=== PATIENT | female | born 1970 | race Caucasian/White ===

== ENCOUNTER → 2018-06-15 10:20 | Outpatient (REF) | payer BC, SELFPAY ==
[2018-06-15 12:45] LABS: ALT 13 U/L (12-78); AST 19 U/L (15-37); Albumin 4.1 g/dL (3.4-5.0); Alkaline Phosphatase 88 U/L (46-116); Anion Gap 8.5 mmol/L (3-11); BUN 14 mg/dL (7-18); Bilirubin, Total 0.7 mg/dL (0.2-1.0); CO2 28.5 mmol/L (21.0-32.0); CREATININE 0.92 mg/dL (0.55-1.02); Calcium 8.6 mg/dL (8.5-10.1); Chloride 104 mmol/L (98-107); Cholesterol 180 mg/dL (50-200); Glucose 96 mg/dL (70-100); HDL Cholesterol 56 mg/dL (40-60); LDL CHOLESTEROL 115 mg/dL (<100); Potassium 4.3 mmol/L (3.5-5.1); Sodium 141 mmol/L (136-145); Total Protein 7.4 g/dL (6.4-8.2); Triglyceride 108 mg/dL (30-150)
[2018-06-15 13:15] LABS: Vitamin D 25 Total 42.6 ng/ml (30-100)
== END ==
LOC: NCHCN 10:20
PROVIDERS: PCP Nurse Practitioner; Visit Provider Nurse Practitioner
DX: Z00.00 Encounter for general adult medical examination without abnormal findings (principal); E55.9 Vitamin D deficiency, unspecified
CPT/HCPCS: 80053; 80061; 82306; 83721

== ENCOUNTER 2018-09-29 11:07 | Outpatient (CLI) | payer BC, SELFPAY ==
--- NOTE | 2018-09-29 07:51 | DI.RAD_ITS ---
SYMPTOM/DIAGNOSIS: LT HEEL PAIN, ? STRESS FX, ? HEEL SPUR LEFT FOOT: There is no evidence of fracture. A plantar calcaneal spur is seen. There is no plantar fascial calcification or evidence of bony erosions. There are no significant degenerative changes. IMPRESSION: Plantar calcaneal spur.
== END 2018-09-29 11:27 ==
PROVIDERS: PCP Nurse Practitioner; Visit Provider Nurse Practitioner
DX: M79.672 Pain in left foot (principal); M77.32 Calcaneal spur, left foot
CPT/HCPCS: 73630

== ENCOUNTER 2020-02-26 02:06 | Outpatient (CLI) | payer BC, SELFPAY ==
--- NOTE | 2020-02-26 15:00 | NS.NUTBLAN_ITS ---
Lashonda comes to outpatient office for Medical Nutrition Therapy for weight gain/morbid obesity per MD referral. She declines being weighed however states that she wants to lose about 50 lbs. She is 5 ft with BMI>40. PMH: unremarable. Meds include feldene, vibryd, neither associated with weight gain. She reports dieting on and off over the years and is frustrated that she cannot keep the weight off despite eating healthy foods and being active. Labs: unremarkable as well. Family history includes type 2 diabetes in both parents. Estimated needs for weight loss: 9793-8107 kca, 60-80 g protein, 40-50 g fat. Diet recall indicates intake of 2791-2602 kcal, 30-40 g protein, 40-50 g fat. No formal exercise at this time. Educated Lashonda to follow lower carb diet with emphasis on lean protein, vegetables and unsaturated fats. Encouraged her to keep food record and to follow up weekly with me. Discussed that her weight gain may be realated to her genetics for type 2 diabetes and that a lower carb, higher protein diet may help her lose weight. Weight was taken today but will not be revealed however, at follow up visits will indicate weight change. Discussed importance of exercise on daily basis. Plan: 1. 1500 kcal, 90-100 g carb, 60-80 g protein, 2. walk 14 miles weekly, 3. log diet and exercise on [employer] mohini 2. follow up to be scheduled in 4 weeks. 30 min spent face to face, 2 units billed to insurance
== END 2020-02-26 02:26 ==
PROVIDERS: PCP Nurse Practitioner; Visit Provider Nurse Practitioner
DX: E66.01 Morbid (severe) obesity due to excess calories (principal); Z71.3 Dietary counseling and surveillance
CPT/HCPCS: 97802

== ENCOUNTER 2020-05-27 04:53 | Outpatient (CLI) | payer BC, SELFPAY ==
--- NOTE | 2020-05-27 15:00 | NS.NUTBLAN_ITS ---
Lashonda returns for Medical Nutrition Therapy for obesity. Wt: blind weights completed, she has lost 22 lbs. Goal Weight: 160-170 lbs. She reports following lower carb, higher protein diet with emphasis on lean protein, non- starchy vegetables and complex carbs. For exercise she is using the treadmill or helping remodel the house. Overall, in last 3 months, has lost about 2 lbs per week- she reports feeling great, has no cravings and able to meet her nutrient need by using food diary log called [employer]. Encouraged Lashonda to continue to log meals on mohini daily to monitor nutrient intake and meet nutrient needs for weight loss. Once house remodeled, walk 14 miles per week outside or on treadmill for continued weight loss. Follow up planned in next 3 months. Lashonda to make appt. when available and needs check in.
== END 2020-05-27 05:13 ==
PROVIDERS: PCP Nurse Practitioner; Visit Provider Dietitian, Registered
DX: E66.01 Morbid (severe) obesity due to excess calories (principal); Z71.3 Dietary counseling and surveillance
CPT/HCPCS: 97803

== ENCOUNTER 2020-08-01 14:17 | Outpatient (REF) | payer SELFPAY ==
[2020-08-02 17:55] LABS: COVID-19 RT-PCR Result NEGATIVE (Negative)
== END 2020-08-01 14:37 ==
LOC: NCHCN 14:17
PROVIDERS: PCP Nurse Practitioner; Visit Provider Nurse Practitioner Family
DX: Z11.59 Encounter for screening for other viral diseases (principal)
CPT/HCPCS: U0003

== ENCOUNTER 2020-08-28 12:32 | Outpatient (REF) | payer BC, SELFPAY ==
[2020-08-28 18:46] LABS: ALT 16 U/L (14-59); AST 14 U/L (15-37); Alkaline Phosphatase 115 U/L (46-116); Anion Gap 6.7 mmol/L (3-11); BUN 18 mg/dL (7-18); Bilirubin, Total 0.4 mg/dL (0.2-1.0); CO2 30.3 mmol/L (21.0-32.0); CREATININE 0.84 mg/dL (0.55-1.02); Calcium 9.3 mg/dL (8.5-10.1); Chloride 103 mmol/L (98-107); Glucose 102 mg/dL (74-106); Potassium 4.4 mmol/L (3.5-5.1); Sodium 140 mmol/L (136-145); Total Protein 7.4 g/dL (6.4-8.2)
[2020-08-28 19:08] LABS: Calculated LDL 108 mg/dL (<100); Cholesterol 199 mg/dL (<200); HDL Cholesterol 52 mg/dL (40-60); Triglyceride 198 mg/dL (<150)
== END 2020-08-28 12:52 ==
LOC: NCHCN 12:32
PROVIDERS: PCP Nurse Practitioner; Visit Provider Nurse Practitioner
DX: Z13.89 Encounter for screening for other disorder (principal); R63.5 Abnormal weight gain; F32.9 Major depressive disorder, single episode, unspecified
CPT/HCPCS: 80053; 80061

== ENCOUNTER 2020-09-22 10:10 | Outpatient (CLI) | payer BC, SELFPAY ==
--- NOTE | 2020-09-22 08:15 | DI.RAD_ITS ---
EXAM: XR KNEE LT 4V AP,LAT,ANDRES,PAT CLINICAL HISTORY: acute left knee pain. TECHNIQUE: 2D digital imaging was performed. COMPARISON: No exams were available for comparison FINDINGS: There is no evidence of fracture nor joint effusion. No degenerative changes. No osseous lesions. Bone density normal. No osteochondral defects. IMPRESSION: No significant radiographic findings in the left knee. DATA REPOSITORY: RADIATION DOSE DELIVERED:
== END 2020-09-22 10:30 ==
PROVIDERS: PCP Nurse Practitioner; Referring Provider Nurse Practitioner; Visit Provider Physician Assistant Surgical
DX: M25.562 Pain in left knee (principal)
CPT/HCPCS: 73564

== ENCOUNTER 2021-02-16 13:25 | Outpatient (CLI) | payer BC, SELFPAY ==
--- NOTE | 2021-02-16 11:15 | DI.RAD_ITS ---
Exam(s) XR HIP RT COMPLETE AP PELVIS EXAM: XR HIP RT COMPLETE AP PELVIS CLINICAL HISTORY: rt hip pain. TECHNIQUE: 2D digital imaging was performed. COMPARISON: No exams were available for comparison FINDINGS: BONES: No acute fracture is present. No bony destructive lesion is seen. JOINTS: No dislocation present. SOFT TISSUE: Normal. Note is made of an IUD in the pelvis. IMPRESSION: Unremarkable radiographs of the right hip. Unremarkable radiographs of the pelvis. DATA REPOSITORY: RADIATION DOSE DELIVERED:
== END 2021-02-16 13:26 | disposition home or self-care (01) ==
LOC: DIORS 15:04
PROVIDERS: PCP Nurse Practitioner; Referring Provider Nurse Practitioner; Visit Provider Physician Assistant Surgical
DX: M25.551 Pain in right hip (principal)
CPT/HCPCS: 73502

== ENCOUNTER 2021-02-27 03:33 | Outpatient (CLI) | payer BC, SELFPAY ==
[2021-02-27 10:16] LABS: Source Nasal/Nares
[2021-02-27 14:07] LABS: COVID-19 PCR Negative (Negative)
== END 2021-02-27 03:34 | disposition home or self-care (01) ==
LOC: LBO 03:35
PROVIDERS: PCP Nurse Practitioner; Visit Provider Surgery
DX: Z20.822 Contact with and (suspected) exposure to COVID-19 (principal); Z01.818 Encounter for other preprocedural examination
CPT/HCPCS: 87635

== ENCOUNTER 2021-03-02 06:19 | Day surgery (SDC) | payer BC, SELFPAY ==
--- NOTE | 2021-03-02 06:19 | W.COLOREPORT ---
Date of service: 03/02/21 Time of Service: 08:00 Colonoscopy Report Date of procedure: 03/02/21 Pre-op diagnosis general: Colon Cancer Screening Post-op diagnosis procedure note: same Procedure: Colonoscopy Surgeon: Kayley Wilkes Anesthesia Type: General:No Airway (ASA 3/ Ramsey Luther, REBECCA) Estimated blood loss (mL): 0 Pathology: none sent Complications: None Disposition: same day Indications: Jerrica is a pleasant 50-year-old female being seen today for a screening colonoscopy.? She did have a colonoscopy in 2002 which was negative.? She denies any melena, hematochezia, abdominal pain, or changes in bowel habits.? She does have a family history of colon cancer in her maternal grandfather but he was in his early to mid 80s when he was diagnosed.? We reviewed the colonoscopy in detail using a pamphlet.? We reviewed the prep and Covid testing. Risks, benefits and complications have been reviewed. Complications include but are not limited to bleeding, pain, perforation, missed small lesion/polyp, sore throat, aspiration and adverse reaction to the medications. Questions were entertained and answered to their satisfaction and they wished to proceed. No guarantees were given or implied.? COVID-19 testing explained to the patient. Reason for test reviewed. Quarantine per state requirements reviewed with patient. Patient understands and agrees to testing. Prep: Miralax/Dulcolax Procedure Start Time: 07:26 Procedure End Time: 07:57 Retraction Time: 13 min Findings: Normal colonoscopy Procedure Description: After informed consent was obtained the patient was taken to the procedure room and placed in a left decubitous position. Monitors were applied and a time out was done. The patients name, date of , procedure, allergies to medications and metal in their body was reviewed. The patient was then sedated. Once sedated and comfortable a rectal exam was done. External exam was normal. Internal exam revealed a normal sphincter tone and no palpable masses. The scope was then introduced and retro-flexed. No internal hemorrhoids, polyps or masses were identified on retro-flexion. The scope was then advanced to the cecum without difficulty. The ileocecal vlave and appendiceal orifice were identified. The prep was good. The scope was then slowly retracted over 13 minutes back into the rectum. There were no polyps and no diverticulosis noted. The scope was removed and the patient was woken up and taken back to Same day surgery in stable condition. The patient tolerated the procedure well and there were no immediate complications. Follow up: The patient should follow up in 10 years unless they develop changes in bowel habits or other new gastrointestinal complaints.
--- NOTE | 2021-03-02 06:20 | W.PM.DSUDISC ---
Discharge Plan Disposition Patient Disposition: HOME Condition: Good Discharge Details Reason For Visit: Colonoscopy Attending Provider: Kayley Wilkes Primary Care Provider: Lucy Hess Home Meds and New Rx's Prescriptions: Continued Viibryd 40 mg tablet 40 mg PO DAILY RF: 0 Multiple Vitamin, Womens Tablet PO RF: 0 cholecalciferol (vitamin D3) 25 mcg (1,000 unit) capsule 25 mcg PO DAILY RF: 0 omega-3 fatty acids [Fish Oil Concentrate] 1,000 mg capsule 1,000 mg PO DAILY RF: 0 acetylcysteine [NAC] 600 mg capsule 600 mg PO DAILY RF: 0 Discontinued bisacodyl [Dulcolax (bisacodyl)] 5 mg tablet,delayed release (DR/EC) 5 mg PO ONCE Qty: 4 RF: 0 polyethylene glycol 3350 17 gram/dose powder 17 g PO ONCE Qty: 238 RF: 0 Discharge Instructions Additional Instructions: Findings: Normal colon Follow up: 10 years Please call if you develop: fevers >101.5 Nausea or Vomiting Abdominal pain that is not transient Rectal bleeding that is more then a tbsp A hard abdomen and inability to pass gas DAY SURGERY UNIT POST ENDOSCOPY INSTRUCTIONS Instructions for everyone who is given Anesthesia: For your safety, please do the following for the next 24 Hours: a. Do not drive or operate dangerous equipment b. Do not drink alcohol beverages or use any recreational drugs for the first 24 hours or while taking pain medications. The medications in your body may have a reaction that can be dangerous. c. Do not make any important decisions or sign any important papers 1. Generally there are no restrictions on your activity after a day or so has gone by, but you may feel a bit fatigued for a few days. 2. After you arrive home you may have a light meal and return to a normal diet as you can tolerate it without feeling sick to your stomach. 3. After surgery, you may feel pain or discomfort. This should be only transient, but if it persists please contact your doctor. 4. If there are any questions regarding the findings of your procedure, please feel free to contact your doctor. 6. If you are unable to contact your doctor with a problem, contact the hospital at [phone]. 7. Continue all your regular medications unless directed otherwise. I understand the above instructions and have no questions. Signature of Patient or Responsible Adult Escort Date/Time Name of Responsible Adult Escort Signature of Nurse Date/Time Activity:: Activity as Tolerated Diet:: As Tolerated Discharge Orders Discharge Orders: Discharge Order (Routine); Ordered 03/02/21 Ordered By: Kayley Wilkes
[2021-03-02 06:45] VITALS: BP 126/77; PULSE 74; RESP 16; TEMP 36.3; O2SAT 96
[2021-03-02] MEDS: Lactated Ringers 1,000 ML 80 ML IV (06:50)
--- NOTE | 2021-03-02 07:04 | W.ANESPRE ---
General Info Date of Service Date Performed: 03/02/21 Height: 4 ft 11.5 in Weight: 96.5 kg Body Mass Index (BMI): 42.2 Surgical Procedure: Operation Date: 03/02/21 07:35 Proposed Procedures Side Surgeon p Colonoscopy Kayley Wilkes MD Meds Allergies and Home Medications Allergies Allergy/AdvReac Type Severity Reaction Status Date / Time citalopram [From Celexa] Allergy Unknown unknown Verified 03/02/21 06:40 miconazole [From Monistat 3] Allergy Verified 03/02/21 06:40 skin cleanser combination Allergy Verified 02/16/21 11:25 no.17 [From Monistat 3] Home Medication Medication Instructions Recorded cholecalciferol (vitamin D3) 25 25 mcg PO DAILY 09/22/20 mcg (1,000 unit) capsule myxyzkamrxlo-Rt-nmab-minerals tab PO 09/22/20 vilazodone 40 mg tablet 40 mg PO DAILY 09/22/20 acetylcysteine 600 mg capsule 600 mg PO DAILY 02/03/21 omega-3 fatty acids 1,000 mg 1,000 mg PO DAILY 02/03/21 capsule bisacodyl 5 mg tablet,delayed 5 mg PO ONCE #4 tab 02/24/21 release polyethylene glycol 3350 17 17 g PO ONCE #238 g 02/24/21 gram/dose oral powder Current Visit Medications: Current Medications Generic Name Dose Route Start Last Admin Trade Name Freq PRN Reason Stop Dose Admin Hyoscyamine Sulfate 0.125 mg 03/02/21 06:21 Hyoscyamine 0.125 Mg Sl/Oral/Chew SL DIRECTED PRN Ringer's Solution 1,000 mls @ 80 mls/hr 03/02/21 06:00 03/02/21 06:50 IV 03/29/21 23:59 80 mls/hr INFUSION WESTLEY Administration IV Miscellaneous Supplies 1 each 03/02/21 06:00 Iv Access IV 03/29/21 23:59 DIRECTED WESTLEY Ondansetron HCl 4 mg 03/02/21 06:21 Ondansetron 4 Mg/2 Ml Vial IVP Q4H PRN PRN Nausea / Vomiting Sodium Chloride 0 ml 03/02/21 06:00 Normal Saline Flush 10 Ml Syr IV 03/29/21 23:59 PRN PRN Sodium Chloride 0 ml 03/02/21 06:00 Normal Saline 10 Ml Vial IJ 03/29/21 23:59 DIRECTED PRN Sterile Water 0 ml 03/02/21 06:00 Water,Injection,Sterile 10 Ml Vial IJ 03/29/21 23:59 DIRECTED PRN PFSH Active Problems Active Problems: Problem Status Onset Code Screening for colon cancer Z12.11 Weight gain R63.5 Right hip pain M25.551 Trochanteric bursitis, right hip M70.61 Medical History Medical History Anxiety Contusion of bone Depression Left knee pain Menstrual headache Morbid obesity with BMI of 40.0-44.9, adult OCD (obsessive compulsive disorder) Trochanteric bursitis, right hip Vitamin D deficiency Surgical History Surgical History (Updated 03/02/21 @ 06:44 by Mahnaz Joshua) Arthroplasty of knee R knee scope per pt Hemorrhoidectomy (~2002) sphincterotomy, fissurotomy S/P colonoscopy (~2002) Tobacco Smoking/Tobacco Use Status: Never Alcohol Alcohol Intake: never Substance Use Substance use type: does not use Vital Signs and Lab Results Vital Signs Most Recent Vital Signs in EMR: Most Recent Vital Signs Temp Pulse Resp BP Pulse Ox 36.3 C L 74 16 126/77 96 03/02/21 06:45 03/02/21 06:45 03/02/21 06:45 03/02/21 06:45 03/02/21 06:45 Point of Care Results Point of Care Results: POC- Test(urine) Negative 03/02/21 06:45 Lab Results Blood Type / Crossmatch: No Data to Display Complete Blood Count: No Data to Display Complete Metabolic Panel: No Data to Display Liver Function Panel: No Data to Display Coagulation Panel: No Data to Display Cardiac Panel: No Data to Display Arterial Blood Gas: No Data to Display Venous Blood Gas: No Data to Display Pancreas Panel: No Data to Display Thyroid Panel: No Data to Display Infectious Disease: Coronavirus (COVID-19)(PCR) Negative (Negative) 02/27/21 08:43 02/27/21 Coronavirus 2019 Source Nasal/nares 02/27/21 08:43 02/27/21 Blood Cultures: No Data to Display Toxicology Panel: No Data to Display Panel: No Data to Display Anesthesia Assessment and Plan Anesthesia History Personal History: No History of Anesthesia Complications Family History: No Family History of Anesthesia Complications Exercise Tolerance Exercise Tolerance: Metabolic Equivalents>4 Pertinent Negatives Pertinent Negatives: No Symptoms of GERD, No Major Cardiovascular Symptoms or Complaints and No Major Pulmonary Symptoms or Complaints Cardiac & Pulmonary Exam Cardiac Exam: Normal S1/S2 Heart Sounds Pulmonary Exam: Clear Bilateral Breath Sounds Airway Exam Known Difficult Airway: No Mallampati Class: 2 Mouth Opening: Narrow (< 3cm) Thyromental Distance: Greater than 3 cm Neck Range of Motion: Full ROM Neck Circumference: Normal Teeth Condition: Normal Dentition ASA Classification ASA Score: ASA 3 Emergency Case?: No NPO Status NPO Status: NPO Clears >2 hours, Solids >8 hours Status Status: Negative HCG Anesthesia Plan Resuscitation Status: Full Code Anesthesia Technique: General Anesthesia Airway Planned: Natural Airway Monitors Used: Standard Monitors
[2021-03-02 07:07] VITALS: BMI 42.2
[2021-03-02 08:04] VITALS: BP 109/64; PULSE 61; RESP 16; TEMP 36.2; O2SAT 100
--- NOTE | 2021-03-02 08:06 | W.ANESPOSTOP ---
Postoperative Evaluation Date, Time and Location Date Performed: 03/02/21 Time Performed: 08:06 Patient Location: Day Surgery Unit Vital Signs Most Recent Imported Vital Signs: Most Recent Vital Signs Temp Pulse Resp BP Pulse Ox 36.3 C L 74 16 126/77 96 03/02/21 06:45 03/02/21 06:45 03/02/21 06:45 03/02/21 06:45 03/02/21 06:45 Pain Score Most Recent Pain Score: Most Recent Pain Score Pain Level 0 03/02/21 06:45 Assessment Mental Status: Arousable with meaningful communication Airway and Respiratory Function: Patent airway with normal (patient baseline) respiratory exam Cardiovascular Function: Hemodynamically Stable Hydration Status: Adequately Hydrated Nausea & Vomiting: No Nausea or Vomiting Pain: Pain is tolerable/mild (<5/10) Peripheral Nerve Block: Patient did not receive a nerve block
[2021-03-02 08:33] VITALS: BP 97/49; PULSE 50; RESP 16; TEMP 36.3; O2SAT 98
== END 2021-03-02 09:25 | disposition home or self-care (01) ==
PROVIDERS: PCP Nurse Practitioner; Visit Provider Surgery
PROC: 0DJD8ZZ Inspection of Lower Intestinal Tract, Via Natural or Artificial Opening Endoscopic (ICD-10-PCS; CPT 45378; principal; 2021-03-02 07:30)
DX: Z12.11 Encounter for screening for malignant neoplasm of colon (principal); Z80.0 Family history of malignant neoplasm of digestive organs
CPT/HCPCS: 45378; 81025; J2704

== ENCOUNTER 2021-12-11 08:03 | Emergency (ER) | payer BC, SELFPAY ==
[2021-12-11 08:21] VITALS: BP 143/72; PULSE 79; RESP 14; TEMP 36.2; O2SAT 97
[2021-12-11 08:23] VITALS: BP 143/72; PULSE 81; RESP 12; TEMP 36.6
--- NOTE | 2021-12-11 08:49 | ED.GENADUL_ITS ---
Discharge Plan Disposition Patient Disposition: HOME Condition: Good Discharge Details Clinical Impression: Foot fracture, right Primary Care Provider: Lucy Hess ED Provider: Helena Mcneill Home Meds and New Rx's Prescriptions: Continued Viibryd 40 mg tablet 40 mg PO DAILY 0RF Rx Instructions: must administer with a meal/food Multiple Vitamin, Womens Tablet PO 0RF cholecalciferol (vitamin D3) 25 mcg (1,000 unit) capsule 25 mcg PO DAILY 0RF omega-3 fatty acids [Fish Oil Concentrate] 1,000 mg capsule 1,000 mg PO DAILY 0RF Discharge Instructions Additional Instructions: Take ibuprofen and Tylenol as needed for pain, ibuprofen 600 mg every 8 hours with food Tylenol 500 to 650 mg every 4-6 hours as needed for additional pain control I and elevate Use patches and limit weightbearing as much as possible Please follow-up with orthopedic to schedule outpatient appointment and return earlier should you have new or worsening complaints including skin discoloration, strength or sensation change, or or worsening pain Referrals: Andrew Connolly MD [ [facility] STAFF PHYSICIAN] - Discharge Data Discharge Date/Time-TO BE ENTERED AT DEPARTURE: 12/11/21 09:[address] in orthopedic boot and crutches Instructed toe-touch weightbearing only Orthopedic referral supplied Ibuprofen and Tylenol for pain control Return precautions discussed and patient understanding, discharged home ambulatory Medical Records Medical records reviewed: Yes I reviewed the patient's medical records. HPI General Date/Time Provider Initiated Documentation: 12/11/21 08:10 . HPI Narrative: This 51-year-old female with history of right hip pain presents with report of slip and fall on ice, twisting her left foot. She has pain at the lateral aspect of her left foot, this occurred at 740 this morning. She denies any additional injuries. Denies any strength or sensation change. Able to ambulate with discomfort per patient. Denies any associated knee pain. Specifically denies any head injury. Related Data Home Medications Medication Instructions Recorded Confirmed cholecalciferol (vitamin D3) 25 25 mcg PO DAILY 09/22/20 03/02/21 mcg (1,000 unit) capsule fcoqldqzwkiq-Cr-ncss-minerals tab PO 09/22/20 02/03/21 (Multiple Vitamin, Womens) vilazodone 40 mg tablet (Viibryd) 40 mg PO DAILY 09/22/20 12/11/21 omega-3 fatty acids 1,000 mg 1,000 mg PO DAILY 02/03/21 03/02/21 capsule (Fish Oil Concentrate) Allergies Allergy/AdvReac Type Severity Reaction Status Date / Time citalopram [From Celexa] Allergy Unknown unknown Verified 03/02/21 06:40 miconazole [From Monistat 3] Allergy Verified 03/02/21 06:40 skin cleanser combination Allergy Verified 02/16/21 11:25 no.17 [From Monistat 3] General Stated Complaint: Orthopedic SHANEL: 4 Review of Systems Narrative: Review of systems obtained x3 and negative aside from indication in HPI PFSH All Active Problems (Updated 12/11/21 @ 09:29 by EMIGDIO Black) Foot fracture, right (Acute) Screening for colon cancer (Acute) Weight gain (Acute) Right hip pain (Acute) Trochanteric bursitis, right hip (Acute) Medical History (Updated 12/11/21 @ 09:29 by EMIGDIO Black) Anxiety Contusion of bone Depression Left knee pain Menstrual headache Morbid obesity with BMI of 40.0-44.9, adult OCD (obsessive compulsive disorder) Vitamin D deficiency Surgical History (Updated 03/13/21 @ 13:44 by Chanell Navarro) Arthroplasty of knee R knee scope per pt Hemorrhoidectomy (~2002) sphincterotomy, fissurotomy S/P colonoscopy (~02/2021) Family History (Updated 02/03/21 @ 07:56 by Kayley Wilkes MD) Father Heart disease Grandfather Diabetes Personal history of malignant neoplasm colon ca Son Diabetes Social History Smoking/Tobacco Use Status: Never Smoking risk assessment performed?: Yes Alcohol Intake: never Substance use type: does not use Do you feel safe at home: Yes Do you feel safe in your relationship?: Yes Exam Neuro General: patient alert and patient oriented x3 Extrem Other: Right foot with lateral tenderness overlying his fifth metatarsal proximally, no palpable ankle tenderness or knee tenderness Neurovascularly intact Sensation intact distally Course Vital Signs Vital signs: Vital Signs Temperature 36.2 C L 12/11/21 08:21 Pulse 79 12/11/21 08:21 Respiratory Rate 14 12/11/21 08:21 Blood Pressure 143/72 H 12/11/21 08:21 Pulse Oximetry 97 12/11/21 08:21 Temperature 36.6 C 12/11/21 08:23 Temperature Source Temporal Artery Scan 12/11/21 08:23 Pulse 81 12/11/21 08:23 Respiratory Rate 12 12/11/21 08:23 Blood Pressure 143/72 H 12/11/21 08:23 Pulse Oximetry 97 12/11/21 08:21 Oxygen Delivery Method Room Air 12/11/21 08:23 Oxygen Flow Rate 0 12/11/21 08:23 Pain Level 0 12/11/21 08:29 Comment 12/11/21 08:21
--- NOTE | 2021-12-11 09:11 | DI.RAD_ITS ---
Exam(s) XR FOOT LT COMPLETE EXAM: XR FOOT LT COMPLETE CLINICAL HISTORY: pain 5th metatarsal. TECHNIQUE: 2D digital imaging was performed. COMPARISON: No exams were available for comparison FINDINGS: Three views of the left foot reveal no evidence of fracture nor diastasis of the Lisfranc joint. Mod erate size inferior calcaneal spur noted. No degenerative changes nor erosions. No radiopaque forei gn body. IMPRESSION: No fracture evident DATA REPOSITORY: RADIATION DOSE DELIVERED:
== END 2021-12-11 09:40 | disposition home or self-care (01) ==
PROVIDERS: Emergency Provider Physician Assistant; PCP Nurse Practitioner
DX: S92.812A Other fracture of left foot, initial encounter for closed fracture (principal); W00.0XXA Fall on same level due to ice and snow, initial encounter
CPT/HCPCS: 29515; 99283; 73630

== ENCOUNTER 2022-05-14 18:14 | Outpatient (REF) | payer BC, SELFPAY ==
[2022-05-14 18:08] LABS: ALT 24 U/L (14-59); AST 12 U/L (15-37); Albumin 3.7 g/dL (3.4-5.0); Alkaline Phosphatase 113 U/L (46-116); Anion Gap 10.9 mmol/L (3-11); BUN 14 mg/dL (7-18); Bilirubin, Total 0.3 mg/dL (0.2-1.0); CO2 25.1 mmol/L (21.0-32.0); Calcium 8.9 mg/dL (8.5-10.1); Calculated LDL 119 mg/dL (<100); Chloride 104 mmol/L (98-107); Cholesterol 201 mg/dL (<200); Estimated GFR 58.22 (mL/min/1.73m2); Glucose 118 mg/dL (74-106); HDL Cholesterol 46 mg/dL (40-60); Potassium 4.2 mmol/L (3.5-5.1); Sodium 140 mmol/L (136-145); Total Protein 6.8 g/dL (6.4-8.2); Triglyceride 183 mg/dL (<150)
== END 2022-05-14 18:15 | disposition home or self-care (01) ==
LOC: NCHCN 18:14
PROVIDERS: PCP Nurse Practitioner; Visit Provider Physician Assistant
DX: E78.5 Hyperlipidemia, unspecified (principal); R73.03 Prediabetes; Z00.00 Encounter for general adult medical examination without abnormal findings
CPT/HCPCS: 80053; 80061; 83036

== ENCOUNTER → 2022-05-19 01:47 | Outpatient (CLI) | payer BC, SELFPAY ==
--- NOTE | 2022-05-19 07:50 | DI.MAMMO_ITS ---
Exam(s) MAMMO SCREENING EXAM: MAMMO SCREENING CLINICAL HISTORY: SCREENING FOR BREAST CANCER Z12.39 TECHNIQUE: Mammograms were interpreted according to the usual protocol including computer analysis w ith CAD system, tomosynthesis and C-view imaging. COMPARISON: SCREENING LILY MAMMO W/CAD DIGI from 06/07/2011 FINDINGS: The breasts are composed of scattered fibroglandular densities, Breast Density category B. No suspicious masses or suspicious microcalcifications are seen. No skin thickening or abnormal axillary lymph nodes are seen. There has been significant decrease in breast density since prior. IMPRESSION: BI-RADS Category 1, Negative mammogram Yearly screening mammography is recommended. Breast Density - Category B, scattered fibroglandular densities. A negative radiographic report should not delay biopsy if a dominant or clinically suspicious mass is present. Up to ten percent of cancers are not identified on mammography. A negative report may reinforce clinical impression. Adenosis and dense breasts may obscure an underlying neoplasm. False positive reports average 6 to 10%. Patient will receive a letter notifying them of these results.
== END ==
PROVIDERS: PCP Nurse Practitioner; Visit Provider Physician Assistant
DX: Z12.31 Encounter for screening mammogram for malignant neoplasm of breast (principal)
CPT/HCPCS: 77063; 77067

== ENCOUNTER 2022-05-26 09:42 | Outpatient (REF) | payer BC, SELFPAY ==
--- NOTE | 2022-05-26 08:45 | PAPFT_PTH ---
PATIENT: Lashonda Augustin LOC: [facility] U#:[id number] AGE/SX: 51/F ROOM: RE05/26/[address]: Gracie Rosa NP : 1970 BED: DIS: 05/26/2022 SPEC #: [id number] RECD: 05/26/22 13:25 STATUS: BALWINDER REButch #: [id number] DEEDEE: 05/26/22 08:[address]: Gracie Rosa NP DEPT: [facility] Cytology RECD BY: Helena Downing ENTERED: 05/26/22 13:26 SP TYPE: PAPFT OTHR DR: Abhishek West Tissues: 1 - CX/ENDOCX FOR PAP SMEARS Procedures: PAP THIN PREP/[facility] Screening HPV DNA PROBE Comments: [id number]
== END 2022-05-26 09:43 | disposition home or self-care (01) ==
LOC: LBN 09:42
PROVIDERS: PCP Physician Assistant; Visit Provider Nurse Practitioner Women's Health
DX: Z11.51 Encounter for screening for human papillomavirus (HPV) (principal); Z12.4 Encounter for screening for malignant neoplasm of cervix
CPT/HCPCS: 88142; 87624

== ENCOUNTER 2022-12-09 11:12 | Outpatient (CLI) | payer BC, SELFPAY ==
--- NOTE | 2022-12-09 09:42 | DI.RAD_ITS ---
Exam(s) XR WRIST RT COMPLETE EXAM: XR WRIST RT COMPLETE CLINICAL HISTORY: RT WRIST PAIN, M25.531. TECHNIQUE: 2D digital imaging was performed of the right wrist. Three views were obtained. PA, lat eral and oblique views were obtained. COMPARISON: No exams were available for comparison FINDINGS: BONES: No acute fracture is present. No bony destructive lesion is seen. There is a nonspecific trian gular 3 mm density in the anterior medial soft tissues of the wrist. JOINTS: The carpal bones are normally aligned. SOFT TISSUE: Normal. IMPRESSION: 1. No acute abnormality. 2. Well-circumscribed nonspecific 3 mm density in the anterior medial soft tissues of the wrist. Thi s may represent an old fracture fragment or dystrophic calcification. DATA REPOSITORY: RADIATION DOSE DELIVERED:
== END 2022-12-09 11:32 ==
LOC: DI 11:14
PROVIDERS: PCP Physician Assistant; Visit Provider Nurse Practitioner Family
DX: M25.531 Pain in right wrist (principal); M79.89 Other specified soft tissue disorders
CPT/HCPCS: 73110

== ENCOUNTER 2023-06-08 08:30 | Outpatient (REF) | payer BC, SELFPAY ==
[2023-06-08 17:51] LABS: ALT 6 U/L (14-59); AST 12 U/L (15-37); Alkaline Phosphatase 94 U/L (46-116); Anion Gap 7.2 mmol/L (3-11); BUN 10 mg/dL (7-18); Bilirubin, Total 0.5 mg/dL (0.2-1.0); CO2 30.8 mmol/L (21.0-32.0); CREATININE 0.9 mg/dL (0.55-1.02); Calcium 9.3 mg/dL (8.5-10.1); Calculated LDL 107 mg/dL (<100); Chloride 101 mmol/L (98-107); Cholesterol 194 mg/dL (<200); Estimated GFR 76.44 (mL/min/1.73m2); Glucose 88 mg/dL (74-106); HDL Cholesterol 43 mg/dL (40-60); Potassium 4.6 mmol/L (3.5-5.1); Sodium 139 mmol/L (136-145); Total Protein 7.2 g/dL (6.4-8.2); Triglyceride 221 mg/dL (<150)
[2023-06-08 18:54] LABS: Hemoglobin A1C 4.9 % (<5.7)
== END 2023-06-08 08:31 | disposition home or self-care (01) ==
LOC: NCHCN 08:30
PROVIDERS: PCP Physician Assistant; Visit Provider Physician Assistant
DX: E78.5 Hyperlipidemia, unspecified (principal); R73.03 Prediabetes
CPT/HCPCS: 80053; 80061; 83036

== ENCOUNTER → 2023-08-22 00:28 | Outpatient (CLI) | payer BC, SELFPAY ==
--- NOTE | 2023-08-22 09:38 | DI.MAMMO_ITS ---
Exam(s) MAMMO SCREENING EXAM: MAMMO SCREENING CLINICAL HISTORY: SCREENING,Z12.39 TECHNIQUE: Bilateral full field digital CC and MLO mammographic images were obtained with 3D tomosyn thesis and utilizing computer aided detection (CAD). COMPARISON: Available for comparison. FINDINGS: Masses/Architectural Distortion: None seen. Microcalcifications: No suspicious pleomorphic-type are seen. Skin Thickening/Nipple Retraction: None. IMPRESSION: 1. No significant interval change with no specific features of malignancy noted. 2. Unless there is more urgent need, screening mammography is recommended, as per [employer] guidelines. BI-RADS Category 1 - Negative Breast Density - Category B - Scattered areas of fibroglandular density Breast density category C or D implies that the patient has dense breast tissue. Dense breast tissue is very common and is not abnormal but dense breast tissue can make it harder to find cancer on a ma mmogram. Also, dense breast tissue may increase their breast cancer risk. This information about the result of the mammogram report was provided to the patient to raise their awareness. Use this report when you speak with the patient about their risks for breast cancer, which includes their family hist ory. At that time, you may recommend for more screening tests (Ultrasound or MRI) as they might be us eful based on their risk. A negative radiographic report should not delay biopsy if a dominant or clinically suspicious mass is present. Up to ten percent of cancers are not identified on mammography. A negative report may reinforce clinical impression. Adenosis and dense breasts may obscure an underlying neoplasm. False positive reports average 6 to 10%. Patient will receive a letter notifying them of these results.
== END ==
PROVIDERS: PCP Physician Assistant; Visit Provider Physician Assistant
DX: Z12.31 Encounter for screening mammogram for malignant neoplasm of breast (principal); R92.323 Mammographic fibroglandular density, bilateral breasts
CPT/HCPCS: 77063; 77067

== ENCOUNTER 2024-07-24 10:07 | Outpatient (CLI) | payer BC, SELFPAY ==
--- NOTE | 2024-07-24 | DI.RAD_ITS ---
Exam(s) XR KNEE RT 3V AP,LAT,ANDRES EXAM: XR KNEE RT 3V AP,LAT,ANDRES CLINICAL HISTORY: PAIN RT KNEE M25.561 MONTHS OF PAIN RECENTLY EXACERBATED. TECHNIQUE: 2D digital imaging was performed. COMPARISON: CR XR KNEE LT 4V AP,LAT,ANDRES,PAT from 09/22/2020 FINDINGS: 3 views No evidence of fracture nor obvious joint effusion. Bone density normal. No osseous lesions. Howev er, there are mild degenerative changes noted in the medial lateral compartments and some degenerativ e pointing the tibial spines. There are no calcified loose intra-articular bodies. No osteochondral defects evident. IMPRESSION: Mild degenerative changes. No prominent joint effusion evident DATA REPOSITORY: RADIATION DOSE DELIVERED:
== END 2024-07-24 10:27 ==
LOC: DI 10:08
PROVIDERS: PCP Physician Assistant; Visit Provider Student in an Organized Health Care Education/Training Program
DX: M17.11 Unilateral primary osteoarthritis, right knee (principal)
CPT/HCPCS: 73562

== ENCOUNTER 2024-09-04 01:54 | Outpatient (CLI) | payer BC, SELFPAY ==
--- NOTE | 2024-09-04 07:45 | DI.MAMMO_ITS ---
Exam(s) MAMMO SCREENING EXAM: MAMMO SCREENING CLINICAL HISTORY: screening. TECHNIQUE: Bilateral full field digital CC and MLO mammographic images were obtained with 3D tomosyn thesis and utilizing computer aided detection (CAD). COMPARISON: Prior mammograms were reviewed. FINDINGS: There has been no significant change in the appearance and distribution of the fibroglandular tissue. There are no CAD designations. There are no new spiculated masses nor malignant appearing microcalcification groups. There is no significant architectural distortion nor skin thickening-retraction. IMPRESSION: No radiographic evidence of malignancy. BI-RADS Category 1 - Negative Breast Density - Category B - Scattered areas of fibroglandular density Breast density Category C or D implies that the patient has dense breast tissue. Dense breast tissue can make it harder to find cancer on a mammogram. Dense breast tissue is also associated with an incr eased risk of breast cancer. This information about the result of the mammogram report was provided to the patient to raise their awareness. Use this report when you speak with the patient about their risks for breast cancer, which includes their family history. At that time, you may recommend additional screening tests (Ultrasoun d or MRI) as these tests may add significant information. A negative radiographic report should not delay biopsy if a dominant or clinically suspicious mass is present. Up to ten percent of cancers are not identified on mammography. A negative report may reinforce clinical impression. Adenosis and dense breasts may obscure an underlying neoplasm. False positive reports average 6 to 10%. Patient will receive a letter notifying them of these results.
== END 2024-09-04 02:14 ==
LOC: DI 01:54
PROVIDERS: PCP Physician Assistant; Visit Provider Nurse Practitioner Women's Health
DX: Z12.31 Encounter for screening mammogram for malignant neoplasm of breast (principal); R92.323 Mammographic fibroglandular density, bilateral breasts
CPT/HCPCS: 77063; 77067

== ENCOUNTER 2024-09-04 03:12 | Outpatient (CLI) | payer BC, SELFPAY ==
[2024-09-04 07:48] LABS: HCT 39.9 % (36.0-46.0); HGB 14.2 g/dL (11.2-15.7); MCH 30.5 pg (27.0-33.0); MCHC 35.6 % (32.0-36.0); MCV 86 fL (80-95); MPV 9.8 fL (8.0-11.0); Platelet Count 248 10^3/uL (130-400); RBC 4.65 10^6/uL (3.93-5.22); RDW 11.5 % (11.7-14.6); RDW-SD 35.8 fL
[2024-09-04 08:04] LABS: ALT 19 U/L (14-59); AST 13 U/L (15-37); Albumin 3.7 g/dL (3.4-5.0); Alkaline Phosphatase 91 U/L (46-116); Anion Gap 9.2 mmol/L (3-11); BUN 18 mg/dL (7-18); CO2 27.8 mmol/L (21.0-32.0); Calculated LDL 125 mg/dL (<100); Chloride 108 mmol/L (98-107); Cholesterol 211 mg/dL (<200); Estimated GFR 66.53 (mL/min/1.73m2); Glucose 101 mg/dL (74-106); HDL Cholesterol 57 mg/dL (40-60); Sodium 145 mmol/L (136-145); Total Protein 7.3 g/dL (6.4-8.2); Triglyceride 146 mg/dL (<150)
[2024-09-04 08:18] LABS: Hemoglobin A1C 5.1 % (<5.7)
[2024-09-05 09:40] LABS: FSH 94.7 mIU/mL (See Note)
== END 2024-09-04 03:13 | disposition home or self-care (01) ==
LOC: LBO 03:12
PROVIDERS: PCP Physician Assistant; Visit Provider Nurse Practitioner Women's Health
DX: Z01.419 Encounter for gynecological examination (general) (routine) without abnormal findings (principal); E78.5 Hyperlipidemia, unspecified; R63.5 Abnormal weight gain; Z00.00 Encounter for general adult medical examination without abnormal findings; N91.2 Amenorrhea, unspecified; R73.03 Prediabetes
CPT/HCPCS: 36415; 80053; 80061; 85027; 83001; 83036

== ENCOUNTER 2025-01-23 15:14 | Outpatient (REF) | payer BC, SELFPAY | END 2025-01-23 15:15 | disposition home or self-care (01) | LOC: LBN 15:14 | PROVIDERS: PCP Physician Assistant; Visit Provider Obstetrics & Gynecology | DX: N71.1 Chronic inflammatory disease of uterus (principal) | CPT/HCPCS: 88305 ==

== ENCOUNTER → 2025-09-05 06:08 | Outpatient (CLI) | payer BC, SELFPAY ==
--- NOTE | 2025-09-05 08:05 | DI.MAMMO_ITS ---
Exam(s) MAMMO SCREENING EXAM: MAMMO SCREENING CLINICAL HISTORY: screening,z12.39 TECHNIQUE: Mammograms were interpreted according to the usual protocol including computer analysis with CAD system, tomosynthesis and C-view imaging. COMPARISON: 2021 through 2023 FINDINGS: The breasts are composed of scattered fibroglandular densities, Breast Density category B. No suspicious masses or suspicious microcalcifications are seen. No skin thickening or abnormal axillary lymph nodes are seen. There has been no significant change from prior exams. IMPRESSION: BI-RADS Category 1, Negative mammogram Yearly screening mammography is recommended. Breast Density - Category B - There are scattered areas of fibroglandular density. Breast density Category C or D implies that the patient has dense breast tissue. Dense breast tissue can make it harder to find cancer on a mammogram. Dense breast tissue is also associated with an increased risk of breast cancer. This information about the result of the mammogram report was provided to the patient to raise their awareness. Use this report when you speak with the patient about their risks for breast cancer, which includes their family history. At that time, you may recommend additional screening tests (Ultrasound or MRI) as these tests may add significant information. A negative radiographic report should not delay biopsy if a dominant or clinically suspicious mass is present. Up to ten percent of cancers are not identified on mammography. A negative report may reinforce clinical impression. Adenosis and dense breasts may obscure an underlying neoplasm. False positive reports average 6 to 10%. Patient will receive a letter notifying them of these results.
== END ==
PROVIDERS: Visit Provider Nurse Practitioner Women's Health
DX: Z12.31 Encounter for screening mammogram for malignant neoplasm of breast (principal); R92.323 Mammographic fibroglandular density, bilateral breasts
CPT/HCPCS: 77063; 77067